=== PATIENT | female | born 1970 | race Caucasian/White ===

== ENCOUNTER 2020-08-08 00:43 | Emergency (ER) | payer OTHER ==
[~2020-08-08] VITALS: Ht 175.3 cm; Wt 64.0 kg
--- NOTE | 2020-08-08 01:04 | NUR ---
PT RESTING IN BED, TOWELS PLACED TO SUPPORT KNEE
[2020-08-08] MEDS ORDERED: CIPR500T87 PO (01:07)
[2020-08-08] MEDS ORDERED: DOXY100T PO (01:07)
[2020-08-08] MEDS ORDERED: ONDANSETRON 2MG/ML, 2ML ONE ×2 (01:10→02:55)
[2020-08-08] MEDS ORDERED: MORPHINE SULFATE 4 MG/ML, 1ML ONE (01:10)
[2020-08-08] MEDS ORDERED: MORPHINE SULFATE 4 MG/ML, 1ML IVPush PRN (01:30)
[2020-08-08] MEDS ORDERED: ONDANSETRON 2MG/ML, 2ML IVPush ONE ×2 (01:30→03:00)
--- NOTE | 2020-08-08 01:35 | NUR ---
PT MEDICATED FOR PAIN, VSS, NO COMPLAINTS, AWAITING XRAY RESULTS
[2020-08-08] MEDS ORDERED: PROPOFOL 10 MG/ML, 20ML ONE (02:10)
--- NOTE | 2020-08-08 02:29 | NUR ---
ROOM SETUP FOR PROCEDURAL SEDATION FOR LEFT KNEE REDUCTION. MEDICATIONS PULLED PER DEC. PT ATTACHED TO ALL VS AND CARDIAC MONITORS. VSS AT THIS TIME. CONSENT OBTAINED FROM PT AND DR STOKES AT FOR PT HISTORY AND ASSESSMENT. PT VERBALIZES UNDERSTANDING OF PROCEDURE.
[2020-08-08] MEDS ORDERED: PROPOFOL 10 MG/ML, 20ML IVPush ONE (02:30)
--- NOTE | 2020-08-08 02:53 | NUR ---
PROCEDURAL SEDATION COMPLETE AT THIS TIME. PROCEDURE LASTED 11 MINUTES FROM 0231 TO 0242. PT TOLERATED WELL. PT VSS AT THIS TIME. PT HAS CALL LIGHT WITHIN REACH. 150 MG PROPOFOL WERE USED IN TOTAL.
--- NOTE | 2020-08-08 03:32 | NUR ---
pt asleep in [facility] at this time; adwoa. call light within reach of pt at this time;
[2020-08-08 04:30] VITALS: BP 95/63
--- NOTE | 2020-08-08 04:31 | NUR ---
pt vss and updated in emr.
== END 2020-08-08 05:17 | disposition home or self-care (01) ==
LOC: ED 01:47
DX: S83.105A Unspecified dislocation of left knee, initial encounter (principal); X58.XXXA Exposure to other specified factors, initial encounter; Y93.01 Activity, walking, marching and hiking; Y92.89 Other specified places as the place of occurrence of the external cause; Y99.8 Other external cause status
CPT/HCPCS: 27830; 73560; 73564; 96374; 96375; 96376; 99152; 99285; J2270; J2405; J2704